=== PATIENT | female | born 1980 | race Caucasian/White ===

== ENCOUNTER 2017-01-20 11:51 | Emergency (ER) | payer MEDICAID ==
[~2017-01-20] VITALS: Ht 162.6 cm; Wt 79.0 kg
[2017-01-20 11:55] VITALS: Ht 162.6 cm; Wt 79.0 kg
[2017-01-20] MEDS ORDERED: ACETAMINOPHEN 500 MG TAB PO STA (13:21)
[2017-01-20] MEDS ORDERED: ONDANSETRON (ODT) 4 MG TAB ODT STA (13:21)
[2017-01-20 13:37] LABS: URINE BLOOD (Dip) POC Negative (NEGATIVE)
[2017-01-20] MEDS ORDERED: ONDA8TAB14 PO (14:18)
[2017-01-20] MEDS ORDERED: ACET500C5 PO (14:18)
[2017-01-20] MEDS ORDERED: BISM262O23 PO (14:18)
--- NOTE | 2017-01-20 14:20 | ERD ---
ER Documentation Chief Complaint Date/Time DATE: 01/20/17 TIME: 14:18 Chief Complaint abd pain with vomiting/diarrhea HPI This 36 female presents with epigastric abdominal pain and vomiting diarrhea for last day. The vomiting is nonbilious nonbloody there is no blood or mucus in the diarrhea patient is a foreign travel or suspect food. Denies . She denies any right-sided lower abdominal pain. She denies any urinary complaints ROS All systems reviewed and are negative except as per history of present illness. Medications Home Meds Active Scripts Bismuth Subsalicylate* (Pepto-Bismol*) 262 Mg/15 Ml Oral.susp, 15 ML PO Q3H Y for DIARRHEA for 4 Days, ML Prov:TEA HERNANDEZ MD 01/20/17 Ondansetron (Ondansetron Odt) 8 Mg Tab.rapdis, 8 MG PO Q6H Y for NAUSEA AND/OR VOMITING, #8 TAB Prov:TEA HERNANDEZ MD 01/20/17 Acetaminophen* (Tylophen*) 500 Mg Capsule, 1 CAP PO Q6H Y for PAIN AND OR ELEVATED TEMP, #15 CAP Prov:TEA HERNANDEZ MD 01/20/17 Reported Medications [None] No Conflict Check 11/05/10 Allergies Allergies: Coded Allergies: No Known Allergy (Verified , 01/20/17) PMhx/Soc History of Surgery: Yes (C/SECTION X4) Anesthesia Reaction: No Hx Neurological Disorder: No Hx Respiratory Disorders: No Hx Cardiac Disorders: No Hx Psychiatric Problems: No Hx Miscellaneous Medical Probl: No Hx Alcohol Use: No Hx Substance Use: No Hx Tobacco Use: No Physical Exam Vitals Vital Signs Date Time Temp Pulse Resp B/P Pulse Ox O2 Delivery O2 Flow Rate FiO2 01/20/17 11:55 98.3 78 18 128/83 100 Physical Exam Const: [] Alert, [id number]. Head: Atraumatic Eyes: Normal Conjunctiva ENT: Normal External Ears, Nose and Mouth. Neck: Full range of motion..~ No meningismus. Resp: Clear to auscultation bilaterally Cardio: Regular rate and rhythm, no murmurs Abd: Soft, minimal left-sided and epigastric abdominal pain. No Powell sign no tenderness at McBurney's point. No rebound., non distended. Normal bowel sounds Skin: No petechiae or rashes Back: No midline or flank tenderness Ext: No cyanosis, or edema Neur: Awake and alert Psych: Normal Mood and Affect Results 24 hrs Laboratory Tests Test 01/20/17 13:36 Bedside Urine pH (LAB) 5.5 Bedside Urine Protein (LAB) 1+ Bedside Urine Glucose (UA) Negative Bedside Urine Ketones (LAB) Trace Bedside Urine Blood Negative Bedside Urine Nitrite (LAB) Negative Bedside Urine Leukocyte Esterase (L Negative Current Medications Medications (Trade) Dose Ordered Sig/Lon Route PRN Reason Start Time Stop Time Status Last Admin Dose Admin Ondansetron HCl (Zofran Odt) 8 mg ONCE STAT ODT 01/20/17 13:21 01/20/17 13:22 DC 01/20/17 13:41 Acetaminophen (Tylenol Tab) 500 mg ONCE STAT PO 01/20/17 13:21 01/20/17 13:22 DC 01/20/17 13:41 Procedures/MDM HCG is negative. Urine is negative for signs of infection, diabetes. There is trace ketones and protein. Patient was given Zofran and Tylenol and had benign abdomen was amatory without peritoneal signs or significant abdominal tenderness on serial exam. Patient is vomiting diarrhea and epigastric pain consistent with viral gastroenteritis. She will treated with Tylenol, Zofran and Pepto-Bismol. The patient was stable with no new complaints during the ER course. Clinically, there is no current evidence to suggest meningitis, sepsis, acute abdomen, pneumonia, acute coronary syndrome, pulmonary embolism, or any other emergent condition appearing to require further evaluation or hospitalization. The patient should certainly return for any new or worsening symptoms per the aftercare instructions. They should otherwise follow-up with her primary care doctor for reevaluation this week. Departure Diagnosis: Primary Impression: Vomiting and diarrhea Additional Impression: Abdominal pain Abdominal location: epigastric Qualified Code: R10.13 - Epigastric pain Condition: Stable Patient Instructions: Abdominal Pain, Self-Care for Vomiting and Diarrhea Additional Instructions: orina normal. probablamente un virus que dura 2-4 mc. cheque otro pari el proximo jag para mas simptomas- vomito, dolor, geovanna, problemas con respirando , o con avila doctor primario. TEA HERNANDEZ MD Jan 20, 2017 14:19
== END 2017-01-20 14:54 | disposition home or self-care (01) ==
LOC: FTE 11:51
DX: R11.10 Vomiting, unspecified (principal); R19.7 Diarrhea, unspecified; R10.13 Epigastric pain
CPT/HCPCS: 81003; Z7502; Z7610; 99283